=== PATIENT | female | born 2000 | race Caucasian/White ===

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

== ENCOUNTER 2021-01-19 07:23 | Inpatient (IN) ==
[2021-01-19] MEDS ORDERED: MEPERIDINE 50 MG/1 ML VIAL IV PRN (07:44)
[2021-01-19] MEDS ORDERED: ONDANSETRON 4 MG/2 ML VIAL IV PRN (07:44)
[2021-01-19] MEDS ORDERED: miSOPROStoL 200 MCG TABLET VAG PRN (07:44)
[2021-01-19] MEDS ORDERED: CARBOPROST TROMETHAMINE 250 MCG/ML AMP IM PRN (07:44)
[2021-01-19] MEDS ORDERED: LIDOCAINE 1% 50 ML VIAL MISC INJ ONE (07:44)
[2021-01-19] MEDS ORDERED: ePHEDrine 50 MG/ML VIAL IV PRN (07:47)
[2021-01-19] MEDS ORDERED: LACTATED RINGERS 1,000 ML IV ONE (07:47)
[2021-01-19] MEDS ORDERED: FAMOTIDINE 20 MG/2 ML VIAL IV ONE (07:47)
[2021-01-19] MEDS ORDERED: CITRIC ACID/SODIUM CITRATE 30 ML UDCUP PO ONE (07:47)
[2021-01-19] MEDS ORDERED: LACTATED RINGERS 250 ML IV PRN (07:48)
[2021-01-19] MEDS ORDERED: diphenhydrAMINE 50 MG/1 ML VIAL IV PRN ×2 (07:48)
[2021-01-19] MEDS ORDERED: NALOXONE 0.4 MG/ML VIAL IV PRN (07:48)
[2021-01-19] MEDS ORDERED: hydrOXYzine HCL 25 MG/1 ML VIAL IM PRN (07:48)
[2021-01-19] MEDS ORDERED: PROMETHAZINE 25 MG/1 ML VIAL IM ONE (07:48)
[2021-01-19 07:58] LABS: Basophils % 0.3 % (0.0-0.8); Eosinophils # 0.1 10*3/uL (0.0-0.87); Eosinophils % 0.6 % (0.00-10.9); Hematocrit 34.4 VOL% (35.7-47.0); Hemoglobin 10.5 GM/DL (12.0-16.0); Immature Granulocytes % 0.6 %; Immature Granulocytes Absolute 0.06 #; Lymphocytes % 18.2 % (21.3-54.2); Mean Corpuscular HGB Conc 30.5 GM/DL (32-36); Mean Corpuscular Volume 81.9 FL (87-102); Mean Platelet Volume 9.8 FL (9.6-12.0); Monocytes % 6.2 % (1.7-12.7); Neutrophils % 74.1 % (38.7-73.9); Platelet Count 198 T/CUMM (130-400); Red Cell Distribution Width 15.4 % (9.3-17.3); White Blood Count 10.8 T/CUMM (4-12)
[2021-01-19] MEDS ORDERED: CLINDAMYCIN INJ 900 MG/50 ML PREMIX IV SCH (08:00)
[2021-01-19] MEDS ORDERED: OXYTOCIN/LR 20 UNIT/1,000 ML BAG IV SCH (08:00)
[2021-01-19] MEDS ORDERED: LACTATED RINGERS 1,000 ML IV SCH ×2 (08:00)
[2021-01-19] MEDS ORDERED: fentaNYL 2 MCG/ROPIV 0.2% EPID 100 ML EPIDURAL SCH (08:00)
[2021-01-19] MEDS ORDERED: miSOPROStoL 200 MCG TABLET ONE (09:06)
[2021-01-19] MEDS ORDERED: CARBOPROST TROMETHAMINE 250 MCG/ML AMP IM ONE (09:07)
[2021-01-19] MEDS ORDERED: METHYLERGONOVINE 0.2 MG/1 ML AMP ONE (09:07)
[2021-01-19 10:25] LABS: Cord Arterial Blood HCO3 26.8 MMOL/L
[2021-01-19 10:29] LABS: Cord Venous Blood HCO3 23.4 MMOL/L; Cord Venous Blood PCO2 38.3 MMHG; Cord Venous Blood PO2 34.7 MMHG
[2021-01-19] MEDS ORDERED: oxyCODONE/ACETAMINOPHEN 5-325 MG TABLET PO PRN ×2 (14:24→14:25)
[2021-01-19] MEDS: IBUPROFEN 800 MG TABLET PO PRN (14:36)
[2021-01-19] MEDS ORDERED: BENZOCAINE 20%/MENTHOL 0.5% SPRAY 56 GM CAN TOP PRN (19:34)
[2021-01-19] MEDS: DOCUSATE SODIUM 100 MG CAPSULE PO SCH ×2 (19:37→21:45)
[2021-01-20] MEDS: IBUPROFEN 800 MG TABLET PO PRN ×2 (04:35→19:42)
[2021-01-20 06:53] LABS: Basophils % 0.5 % (0.0-0.8); Eosinophils # 0.1 10*3/uL (0.0-0.87); Eosinophils % 1.2 % (0.00-10.9); Hematocrit 29.9 VOL% (35.7-47.0); Hemoglobin 9.3 GM/DL (12.0-16.0); Immature Granulocytes % 0.6 %; Immature Granulocytes Absolute 0.05 #; Lymphocytes # 2.1 10*3/uL (1.4-4.0); Lymphocytes % 23.9 % (21.3-54.2); Mean Corpuscular HGB Conc 31.1 GM/DL (32-36); Mean Corpuscular Volume 83.5 FL (87-102); Mean Platelet Volume 10.2 FL (9.6-12.0); Monocytes % 7.4 % (1.7-12.7); Neutrophils % 66.4 % (38.7-73.9); Platelet Count 165 T/CUMM (130-400); Red Blood Count 3.58 MC/CUMM (3.8-5.5); Red Cell Distribution Width 15.1 % (9.3-17.3); White Blood Count 8.6 T/CUMM (4-12)
[2021-01-20] MEDS: DOCUSATE SODIUM 100 MG CAPSULE PO SCH ×3 (10:37→20:28)
[2021-01-20] MEDS ORDERED: WITCH HAZEL PADS 100/JAR TOP PRN (19:26)
[2021-01-20] MEDS ORDERED: HYDROCORTISONE 2.5% RECTAL CREAM 30 GM TUBE TOP PRN (19:27)
[2021-01-21] MEDS: IBUPROFEN 800 MG TABLET PO PRN (08:12)
[2021-01-21] MEDS: DOCUSATE SODIUM 100 MG CAPSULE PO SCH (08:12)
[2021-01-21 13:44] VITALS: BP 131/65
== END 2021-01-21 15:00 | disposition home or self-care (01) | DRG 560 ==
LOC: N.LDOUT 07:23 → N.LD 07:25 → N.OB 13:20
PROVIDERS: ADMIT Obstetrics & Gynecology; ATTEND Obstetrics & Gynecology